=== PATIENT | female | born 1955 | race Caucasian/White ===

== ENCOUNTER 2016-08-17 16:10 | Observation (INO) | payer BC ==
[~2016-08-17] VITALS: Ht 167.6 cm; Wt 128.8 kg
[2016-08-17 19:00] VITALS: BP 166/82
[2016-08-17 19:10] VITALS: BP 166/82
[2016-08-17 23:59] VITALS: BP 157/73
[2016-08-18 02:55] VITALS: BP 177/69
[2016-08-18 06:24] VITALS: BP 189/84
[2016-08-18 11:08] VITALS: BP 133/64
[2016-08-18] MEDS ORDERED: METOPROLOL SUCC50 M1 PO (11:54)
[2016-08-18] MEDS ORDERED: NYSTATIN POWDER30 GM TP (11:55)
[2016-08-18] MEDS ORDERED: CEFDINIR300 MG PO (11:55)
[2016-08-18] MEDS ORDERED: ZOFRAN ODT4 MG PO (11:56)
[2016-08-18 12:51] VITALS: BP 128/65
== END 2016-08-18 11:44 | disposition home or self-care (01) ==
LOC: ED 16:10 → MED/SURG 18:42
PROVIDERS: ADMIT Nurse Practitioner Family
DX: N12 Tubulo-interstitial nephritis, not specified as acute or chronic (principal); B96.20 Unspecified Escherichia coli [E. coli] as the cause of diseases classified elsewhere; I16.0 Hypertensive urgency; E66.01 Morbid (severe) obesity due to excess calories; E11.8 Type 2 diabetes mellitus with unspecified complications; R00.0 Tachycardia, unspecified; R11.0 Nausea; B36.9 Superficial mycosis, unspecified; I10 Essential (primary) hypertension; B37.2 Candidiasis of skin and nail
CPT/HCPCS: G0378; J0696; J1885; J7030

== ENCOUNTER → 2016-09-01 | Outpatient (CLI) | payer BC ==
[2016-08-18 12:51] VITALS: BP 128/65
[~2016-09-01] MED LIST: CEFDINIR300 MG PO; METOPROLOL SUCC50 M1 PO; NYSTATIN POWDER30 GM TP; ZOFRAN ODT4 MG PO
== END ==
LOC: LAB 11:56
DX: R00.0 Tachycardia, unspecified (principal); I10 Essential (primary) hypertension; Z87.440 Personal history of urinary (tract) infections; L30.9 Dermatitis, unspecified

== ENCOUNTER → 2016-09-08 | Outpatient (CLI) | payer BC ==
[2016-08-18 12:51] VITALS: BP 128/65
== END ==
LOC: LAB 14:04
DX: Z87.440 Personal history of urinary (tract) infections (principal)

== ENCOUNTER → 2016-09-09 | Outpatient (CLI) | payer BC ==
[2016-08-18 12:51] VITALS: BP 128/65
== END ==
LOC: LAB 07:38
DX: Z87.440 Personal history of urinary (tract) infections (principal); I10 Essential (primary) hypertension; L30.9 Dermatitis, unspecified; R82.90 Unspecified abnormal findings in urine; Z87.442 Personal history of urinary calculi

== ENCOUNTER → 2017-01-07 | Outpatient (CLI) | payer BC ==
[2017-01-07 12:37] LABS: EOS # 0.5 (0.04-0.40); EOS % 3.8 % (1.0-5.0); HEMATOCRIT 38.8 % (37.0-47.0); HEMOGLOBIN 11.8 g/dL (12.5-16.0); LYMPH# 1.7 (1.50-4.00); MEAN CELL VOLUME 88 fl (78-100); MEAN CORPUSCULAR HEMOGLOBIN 27 pg (27-31); MEAN CORPUSCULAR HGB CONC 30 g/dL (33-37); MEAN PLATELET VOLUME 9.4 fl (7.4-10.4); MONO # 0.8 (0.20-0.80); NEU # 8.9 (1.40-6.50); PLATELET COUNT 365 K/mm3 (130-400); RED CELL DISTRIBUTION WIDTH 15.3 % (11.5-14.5)
== END ==
LOC: RAD 12:15
PROVIDERS: Family Medicine
DX: J98.01 Acute bronchospasm (principal); R06.02 Shortness of breath; I10 Essential (primary) hypertension; M47.814 Spondylosis without myelopathy or radiculopathy, thoracic region